=== PATIENT | male | born 1970 | race Caucasian/White ===

== ENCOUNTER 2017-05-23 10:31 | Outpatient (CLI) | payer MEDICARE, OTHER ==
[~2017-05-23] VITALS: Ht 168.9 cm; Wt 77.3 kg
[2017-05-23 10:45] VITALS: BP 129/71; PULSE 82; RESP 16; Ht 168.9 cm; Wt 77.3 kg
[2017-05-23] MEDS ORDERED: NIFE60TA7 PO (11:02)
[2017-05-23] MEDS ORDERED: LABE100T3 PO (11:02)
[2017-05-23] MEDS ORDERED: CALC667C PO (11:02)
[2017-05-23] MEDS ORDERED: HYDR-3672 PO (11:02)
[2017-05-23] MEDS ORDERED: DICY10CA60 PO (11:02)
[2017-05-23] MEDS ORDERED: FER325 PO (11:02)
[2017-05-23] MEDS ORDERED: MINO2.5T16 PO (11:02)
[2017-05-23] MEDS ORDERED: CLON0.2T5 PO (11:02)
[2017-05-23] MEDS ORDERED: CNC30T PO (11:02)
[2017-05-23] MEDS ORDERED: LOSA50TA6 PO (11:02)
--- NOTE | 2017-05-23 12:37 | CONS ---
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 Etiology of this mass is still not clear to me, the diagnosis of neuroendocrine tumor is still in the differential despite FNA findings. The last MRI was of poor quality per official report (although I do see a mass which may or may not be part of the head of the pancreas). I agree that close observation and multidisciplinary care is indicated and I recommended repeat pancreas protocol CT with IV and oral contrast in order to better explain this mass. I do not see enough indication as of today to offer surgical intervention, but my index of suspicioun is moderately high and need to closely follow the patient. Explained to patient and answered all questions. Patient appeared to understand and agreed with plans. With above assessment, I've recommended the followin. Repeat pancreas protocol IV and oral contrast CT of abd/pelvis 2. Multidisciplinary tumor board presentation as soon as possible to determine the timing of #1 above (either now or toward the end of June if the committee feels that images of last MRI are of sufficient quality) 3. Likely will need repeat EUS around September 2017 4. Close follow up with us and Dr. Lagos 5. Serum chromogranin A and urine 5HIAA Thank you very much for having me involved in the care of this very pleasant patient and wonderful family. If you have any questions, please feel free to contact me at [phone]. Nature of presenting problem: High severity Please note that, given the extensive number of diagnoses or management options , the extensive (including review of more than 50 pages of small formed type information) amount and/or complexity of data needed to be reviewed, and I risk of complications and/or morbidity or mortality, this qualifies as high complexity type of decision-making. Disclaimers: 1. Inadvertent spelling and grammatical errors are likely due to electronic health record (EHR)/dictation software used and do not reflect on the quality of delivered patient care. 2. The electronic timestamp recorded on this note does not necessarily reflect the actual date and time of the visit or the service. 3. Portions of this note may have been created through electronic templates and computer algorithms that might bring in information either from the system or from other physicians and providers. Please note that such information may or may not contain errors, the occurrence of which are outside of my control. In general (but not always) this happens either in the beginning or at the end of the note. The portion of the note that I have created are generally done in 1 continuous block of text, flanked at the beginning and at the end by " ", and entered into one field in the EHR. 4. There may be other unanticipated errors in the note that are outside of my control. I can only attest to the portions of the note that I have created. 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 Comorbidities: 1. BMI 27.1 2. Renal failure, on dialysis, and on [facility] kidney transplant this for the last 2 years. Etiology likely uncontrolled hypertension and diabetes 3. Hypertension 4. Diabetes mellitus 5. Microcytic anemia 6. Hyperkalemia 7. History of migraine 8. Hypercholesterolemia 09. Status post AV fistula surgery 2014 10. Gastroesophageal reflux disease without esophagitis 11. History of 2 cm round left breast lump November 2015. Not painful. Left breast ultrasound 12. Male erectile dysfunction 13. Enterocolitis due to Clostridium difficile infection mention in the chart September 2016 14. + tobacco 15. + marijuana CONSULTATION REQUESTED BY: Mere Lagos MD and Erica Layne NP Dear Dr. Lagos and SAHBBIR Layne, Thank you very much for the opportunity to be involved in the care of this very pleasant gentleman and his wonderful family. HISTORY OF PRESENT ILLNESS: The patient is a very pleasant 46-year-old gentleman with above-mentioned comorbidities whom we were kindly asked consult regarding management of his pancreatic head mass. In September 2016, the patient was referred to gastroenterology for colonoscopy given previous treatment for diarrhea and C. difficile colitis. Upper endoscopy was also recommended since the patient had chronic gastritis. During the course of endoscopy, unusual ulcer was found and therefore a CT of the abdomen and pelvis was recommended. Mass in the pancreas was found. Endoscopic ultrasound was therefore arranged for which was done at [facility] on 02/14/2017 where a round mass was identified in the pancreatic head which was hypoechoic. Endoscopic borders were well-defined. Intact interface was seen between the mass of the superior mesenteric artery adjusting a lack of invasion. Fine-needle aspiration was performed. Preliminary cytologic evaluation was suspicious for carcinoma with neuroendocrine features. Pancreatic duct was normal. Final pathology report demonstrates no malignant cells identified in the cells in question did not stain with neuroendocrine markers and were consistent with benign acinar cells. Patient does report approximately 10 pound weight loss in the last 4 months. He has mild nausea on and off but has not had any previous episodes of pancreatitis in the past. He does not report significant changes in his appetite or bowel or bladder habits. No blood in the stool or urine. Family history significant for esophageal cancer in his father but no history of pancreatic malignancies or other major hereditary syndrome malignancies. His review of systems is significant for frequent vomiting as well as constipation. Also some swelling of his feet and ankles. ALLERGIES: NO KNOWN DRUG ALLERGIES MEDICATIONS Documented in the electronic records and reviewed by me. Please see the electronic records for details. SOCIAL HISTORY: The patient lives with family. Has 5 children. 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 + Tob (smokes 7 cigarettes per day; also smokes marijuana); - ETOH; - IVDU FAMILY HISTORY: History of diabetes and hypertension in the family as well as esophageal cancer in his father. There are no other significant medical, surgical or oncologic issues in the family as reported by the patient or reflected in the chart. REVIEW OF SYSTEMS: Other than mentioned above, there were no other pertinent positives or pertinent negatives in an otherwise complete 14 point review of systems. PHYSICAL EXAMINATION GENERAL: The patient appears to be a very pleasant -[place]ov[place] gentleman of non- descent sitting in a chair appearing stated age,] and otherwise in no acute distress. BMI: 27.1 VITAL SIGNS: AVSS (please also see auto important data if available as well as the electronic records) HEENT: Normocephalic and atraumatic. Extraocular muscles and hearing are grossly intact bilaterally and symmetrically. Sclerae are nonicteric. Oral cavity is clear; oral mucosa appear to be pink and moist. Dentition: fair. NECK: Supple. There is no lymphadenopathy or JVD. There is no submental, submandibular or supraclavicular lymphadenopathy. CHEST: Rises symmetrically with each breath; patient is breathing comfortably. There are no audible wheezes, rales or rhonchi on the gross exam. HEART: Pulse is regular and palpable on the right wrist. Capillary refill is normal. Carotid pulses are palpable bilaterally and symmetrically in the neck. EXTREMITIES: Lower extremities contain no pitting edema around the ankles bilaterally and symmetrically. ABDOMEN: Abdomen is soft, nontender and nondistended. No evidence of ascites, organomegaly, caput medusae, engorged subcutaneous veins, or other abnormalities. There are no peritoneal signs or guarding. SKIN: Appears to be pink and feels warm to touch. NEUROLOGIC: Awake, alert, and follows commands appropriately. LABORATORY DATA: 02/23/2017: CA-[id number] 17, CEA 3.2. 10/01/2016: Platelets 178, leukocyte esterase 1+ and few bacteria noted and urinalysis with no nitrite, hemoglobin A1c 5.7, albumin 4.4, INR 1.0, creatinine 9.26 IMAGING: See electronic chart. Please note that I've personally reviewed all pertinent available images and I agree in general with their overall reported findings. MRI abdomen with and without contrast 04/12/2017 [facility] ([facility]) Dr. Valdez Chavez: Limited examination because of exam technique. Findings are suspicious for pancreatic head mass or mass adjacent to the pancreatic head. CT scan of the abdomen and pelvis with and without IV contrast is recommended for further evaluation. MRCP 04/05/2017 [facility] ([facility]) Dr. Demi Weldon: No gross abnormality with no biliary or pancreatic duct dilatation. CT abdomen and pelvis with and without contrast 04/12/2017 [facility] Dr. Tavares Carreno: Indeterminate abnormality involving the second portion of duodenum and borderline enlarged abdominal retroperitoneal lymph nodes. Small amount of ascites. Mild intrahepatic bile duct dilatation. Multiple enlarged bilateral inguinal lymph nodes. Questionable gallstones. CT abdomen and pelvis without contrast 09/06/2013 [facility] Dr. Diya Chiu: No acute pathology is noted in the abdomen or pelvis and normal kidneys were noted. Consultation Date/Type/Reason Admit Date/Time Exam/Review of Systems Vital Signs Vitals Vital Signs Date Time Temp Pulse Resp B/P Pulse Ox O2 Delivery O2 Flow Rate FiO2 05/23/17 10:45 97.9 82 16 129/71 97 Room Air TREE VALADEZ M.D. May 23, 2017 12:37
== END 2017-05-23 17:00 | disposition home or self-care (01) ==
LOC: HPC 10:31
PROVIDERS: ATTEND Transplant Surgery
DX: R19.00 Intra-abdominal and pelvic swelling, mass and lump, unspecified site (principal); I12.0 Hypertensive chronic kidney disease with stage 5 chronic kidney disease or end stage renal disease; N18.6 End stage renal disease; Z99.2 Dependence on renal dialysis; E11.9 Type 2 diabetes mellitus without complications; D50.9 Iron deficiency anemia, unspecified; E78.00 Pure hypercholesterolemia, unspecified; K21.9 Gastro-esophageal reflux disease without esophagitis; N52.9 Male erectile dysfunction, unspecified; Z72.0 Tobacco use
CPT/HCPCS: G0463

== ENCOUNTER 2017-11-02 09:48 | Outpatient (CLI) | END 2017-11-02 15:54 | disposition home or self-care (01) ==

== ENCOUNTER 2018-11-22 09:39 | Day surgery (SDC) | payer MEDICARE, OTHER ==
[~2018-11-22] VITALS: Ht 167.6 cm; Wt 69.0 kg
[~2018-11-22 09:39] MED LIST: CALC667C PO; CINA30TA4 PO; CLON0.2T5 PO; DICY10CA40 PO; FER325 PO; HYDR-3672 PO; LABE100T7 PO; LOSA50TA14 PO; MINO2.5T16 PO; NIFE60TA18 PO
[2018-11-22] MEDS ORDERED: aspirin (10:43)
[2018-11-22] MEDS ORDERED: ferrous gluconate (10:43)
[2018-11-22 10:48] VITALS: BP 138/72; PULSE 76; RESP 16
[2018-11-22 10:52] VITALS: Ht 167.6 cm; Wt 69.0 kg
--- NOTE | 2018-11-22 11:12 | PREAC ---
Date/Time of Note Date/Time of Note DATE: 11/22/18 TIME: 11:11 Anesthesia Eval and Record Evaluation Time Pre-Procedure Interview DATE: 11/22/18 TIME: 11:11 Age 48 Sex male NPO: 8 hrs Preoperative diagnosis abd pain Planned procedure egd Past Medical History Past Medical History: Includes Cardio: HTN Endo: Diabetes Renal: ESRD on dialysis, HD last: (yesterday) Surgery & Anesthesia Issues No known issue Meds Anticoagulation: No Beta Dominick within 24 hr: Yes Reason Beta Dominick not given: Pt. not on B-Dominick Reported Medications [aspirin] No Conflict Check 11/22/18 [ferrous gluconate] No Conflict Check 11/22/18 Minoxidil* (Lonitin*) 2.5 Mg Tab, 2.5 MG PO DAILY, TAB 05/23/17 Clonidine Hcl* (Clonidine Hcl*) 0.2 Mg Tablet, 0.2 MG PO Q8 for ELEVATED BLOOD PRESSURE, TAB 05/23/17 Calcium Acetate* (Calcium Acetate*) 667 Mg Capsule, 667 MG PO WITH MEALS, #30 CAP 05/23/17 Losartan Potassium* (Losartan Potassium*) 50 Mg Tablet, 50 MG PO DAILY, TAB 05/23/17 Labetalol Hcl* (Labetalol Hcl*) 100 Mg Tablet, 100 MG PO BID, TAB 05/23/17 Nifedipine* (Nifedipine ER*) 60 Mg Tablet.sa, 60 MG PO DAILY, TAB.SA 05/23/17 Discontinued Reported Medications Hydralazine Hcl* (Hydralazine Hcl*) 50 Mg Tab, 50 MG PO Q8, #90 TAB 05/23/17 Dicyclomine HCl (Dicyclomine HCl) 10 Mg Capsule, 20 MG PO QID, CAP 05/23/17 Ferrous Sulfate* (Ferrous Sulfate*) 325 Mg Tabec, 325 MG PO BID, TAB 05/23/17 Cinacalcet* (Sensipar*) 30 Mg Tab, 30 MG PO, TAB 05/23/17 Meds reviewed: Yes Allergies Coded Allergies: No Known Drug Allergies (Verified Allergy, Unknown, 11/22/18) Allergies Reviewed: Yes Labs/Studies Labs Reviewed: Reviewed by anesthesiologist test: N/A Studies: ECG (n/a), CXR (n/a) Pre-procedure Exam Last vitals Vital Signs Date Temp Pulse Resp B/P (MAP) Pulse Ox O2 O2 Flow FiO2 Time Delivery Rate 11/22/18 98.0 76 16 138/72 100 Room Air 10:48 (94) Airway: Adequate mouth opening Mallampati: Mallampati I Teeth: Normal Lung: Normal Heart: Normal ASA Physical Status ASA physical status: 3 Emergency: None Planned Anesthetic General/MAC: MAC Planned Pain Management Parenteral pain med Pre-operative Attestations Prior to commencing anesthesia and surgery, the patient was re-evaluated, there was verification of: *The patient's identity *The results of appropriate recent lab work and preoperative vital signs *The above evaluation not changing prior to induction *Anesthetic plan, risk benefits, alternative and complications discussed with patient/family; questions answered; patient/family understands, accepts and wishes to proceed. CATHERINE OLEARY MD November 22, 2018 11:12
[2018-11-22] MEDS ORDERED: FENTAnyl 50 MCG/ML VIAL IV PRN (11:30)
[2018-11-22] MEDS ORDERED: ONDANSETRON 4 MG INJ IV PRN (11:30)
[2018-11-22] MEDS ORDERED: PROPOFOL 20 ML ONE (11:54)
[2018-11-22] MEDS ORDERED: FENTAnyl 50 MCG/ML VIAL ONE (11:54)
[2018-11-22 12:30] VITALS: BP 149/66; PULSE 78; RESP 18
[2018-11-22 12:35] VITALS: BP 145/65; PULSE 78; RESP 20
[2018-11-22 12:50] VITALS: BP 157/79; PULSE 87; RESP 19
--- NOTE | 2018-11-23 09:06 | PAC ---
Date/Time of Note Date/Time of Note DATE: 11/23/18 TIME: 09:06 Post-Anesthesia Notes Post-Anesthesia Note Last documented vital signs Vital Signs Date Temp Pulse Resp B/P (MAP) Pulse Ox O2 O2 Flow FiO2 Time Delivery Rate 11/22/18 97.4 87 19 157/79 97 Room Air 12:50 (105) Activity: WNL Respiratory function: WNL Cardiovascular function: WNL Mental status: Baseline Pain reasonably controlled: Yes Hydration appropriate: Yes Nausea/Vomiting absent: No CATHERINE OLEARY MD November 23, 2018 09:06
== END 2018-11-22 13:50 | disposition home or self-care (01) ==
LOC: GIL 09:39
PROVIDERS: ATTEND Internal Medicine Gastroenterology
DX: K29.00 Acute gastritis without bleeding (principal); I12.0 Hypertensive chronic kidney disease with stage 5 chronic kidney disease or end stage renal disease; N18.6 End stage renal disease; Z99.2 Dependence on renal dialysis; E11.9 Type 2 diabetes mellitus without complications
CPT/HCPCS: 43239; 84132; 88305; 88312; J3010